=== PATIENT | female | born 1935 | race Caucasian/White ===

== ENCOUNTER 2017-11-05 08:47 | Outpatient (CLI) | payer OTHER ==
[~2017-11-05 08:47] MED LIST: AMBIEN10 MG; FLUNISOLIDE25 ML NS; LIBRAX CAPSULE1 CA1 PO; LIPITOR40 MG; METFORMIN HCL500 MG; MUCINEX22 ML NS; PRILOSEC10 MG PO; PROAIR HFA8.5 GM IH; QVAR7.3 G1 IH; SYNTHROID50 MCG PO; VASOTEC20 MG; ZETIA10 MG
== END 2017-11-05 08:51 | disposition home or self-care (01) ==
LOC: SONOGRAMA 08:47
DX: E04.2 Nontoxic multinodular goiter (principal)

== ENCOUNTER 2022-03-28 09:40 | Emergency (ER) | payer OTHER ==
[~2022-03-28] VITALS: Ht 149.9 cm; Wt 64.4 kg
[2022-03-28] MEDS ORDERED: OSTERA TABLET1 EACH PO (09:54)
== END 2022-03-28 11:08 | disposition home or self-care (01) ==
LOC: ER 09:40 → EMR PED 09:43 → ER 09:43
DX: L27.0 Generalized skin eruption due to drugs and medicaments taken internally (principal); T36.0X5A Adverse effect of penicillins, initial encounter; Y92.9 Unspecified place or not applicable; E11.9 Type 2 diabetes mellitus without complications; Z79.84 Long term (current) use of oral hypoglycemic drugs; I10 Essential (primary) hypertension; Z88.2 Allergy status to sulfonamides; Z88.8 Allergy status to other drugs, medicaments and biological substances